=== PATIENT | female | born 1935 | race Caucasian/White ===

== ENCOUNTER 2016-07-05 08:28 | Observation (INO) | payer MEDICARE ==
[~2016-07-05] VITALS: Ht 167.6 cm; Wt 104.5 kg
[~2016-07-05 08:28] MED LIST: AMIO200T42 PO; APIX5TAB PO; ASPI-515 PO; ATOR10TA PO; CHOL200040 PO; DILT30TA27 PO; FAMO20TA7 PO; METO25TA35 PO; METO50TA82 PO
[2016-07-05] MEDS ORDERED: SODIUM CHLORIDE 0.9% 1,000 ML IV SCH (08:48)
[2016-07-05 08:56] VITALS: BP 134/71
[2016-07-05] MEDS ORDERED: CEFAZOLIN PMX 1GM/50ML 50 ML IVPB ONE (09:00)
[2016-07-05] MEDS ORDERED: IRBE75TA10 PO (09:21)
[2016-07-05] MEDS ORDERED: METO25TA35 PO (09:21)
[2016-07-05] MEDS ORDERED: MULT-6 PO (09:21)
[2016-07-05] MEDS ORDERED: VIT1TABL32 PO (09:21)
[2016-07-05] MEDS ORDERED: AMIO100T4 PO (09:21)
[2016-07-05] MEDS ORDERED: CALC250T PO (09:21)
[2016-07-05] MEDS ORDERED: FAMO20TA7 PO (09:21)
[2016-07-05] MEDS ORDERED: DILT30TA33 PO (09:21)
[2016-07-05] MEDS ORDERED: APIX5TAB PO (09:26)
[2016-07-05] MEDS ORDERED: CEFAZOLIN PMX 1GM/50ML 50 ML ONE (09:49)
[2016-07-05] MEDS ORDERED: CEFAZOLIN 1,000 MG ONE (09:49)
[2016-07-05] MEDS ORDERED: MIDAZOLAM 1 MG/ML, 5ML ONE (09:49)
[2016-07-05] MEDS ORDERED: FENTANYL PF 100 MCG/2ML ONE (09:49)
[2016-07-05] MEDS ORDERED: LIDOCAINE 2%, 20ML ONE (09:49)
[2016-07-05] MEDS ORDERED: ACETAMINOPHEN 325 MG TABLET PO PRN (11:00)
[2016-07-05] MEDS ORDERED: ZOLPIDEM 5MG TABLET PO PRN (11:00)
[2016-07-05 11:28] VITALS: BP 143/74
[2016-07-05 12:52] VITALS: BP 157/84
[2016-07-05] MEDS: CEFAZOLIN PMX 1GM/50ML 50 ML IVPB SCH (16:14)
[2016-07-05 19:09] VITALS: BP 126/78
[2016-07-05] MEDS: METOPROLOL TARTRATE 25 MG TABLET PO SCH (20:30)
[2016-07-05] MEDS: AMIODARONE 200 MG TABLET PO SCH (20:30)
[2016-07-05] MEDS: FAMOTIDINE 20 MG TABLET PO SCH (20:30)
[2016-07-05] MEDS: SODIUM CHLORIDE FLUSH 10ML SYR IVF SCH (20:55)
[2016-07-05] MEDS: APIXABAN 5 MG TABLET PO SCH (20:56)
[2016-07-05] MEDS ORDERED: ATORVASTATIN 10 MG TABLET PO SCH (21:00)
[2016-07-06] MEDS: CEFAZOLIN PMX 1GM/50ML 50 ML IVPB SCH (01:11)
[2016-07-06 02:00] VITALS: BP 148/84
[2016-07-06 07:39] VITALS: BP 138/84
[2016-07-06] MEDS: FAMOTIDINE 20 MG TABLET PO SCH (08:36)
[2016-07-06] MEDS: APIXABAN 5 MG TABLET PO SCH (08:36)
[2016-07-06] MEDS: METOPROLOL TARTRATE 25 MG TABLET PO SCH (08:36)
[2016-07-06] MEDS: SODIUM CHLORIDE FLUSH 10ML SYR IVF SCH (08:37)
[2016-07-06] MEDS: AMIODARONE 200 MG TABLET PO SCH (08:39)
[2016-07-06] MEDS ORDERED: CHOLECALCIFEROL 1,000 UNIT TABLET PO SCH (09:00)
[2016-07-06] MEDS ORDERED: CALCIUM CITRATE 950 MG TABLET PO SCH ×2 (09:00)
[2016-07-06] MEDS ORDERED: DILTIAZEM 30 MG TABLET PO SCH (09:00)
[2016-07-06] MEDS ORDERED: IRBESARTAN 150 MG TABLET PO SCH (09:00)
[2016-07-07] MEDS ORDERED: LUTEIN PO SCH (09:00)
[2016-07-07] MEDS ORDERED: [UNRECOGNIZED DRUG - OTHER] PO SCH (09:00)
[2016-07-07] MEDS ORDERED: MINERALS PO SCH (09:00)
[2016-07-07] MEDS ORDERED: MULTIVITAMIN 1 TABLET PO SCH (09:00)
[2016-07-07] MEDS ORDERED: VIT A C PO SCH (09:00)
== END 2016-07-06 11:48 | disposition home or self-care (01) ==
LOC: CACL 08:28 → ORIP 10:49 → 5SO 11:12 → DCLOUNGE 07-06 11:34
PROVIDERS: ADMIT Internal Medicine Cardiovascular Disease; ATTEND Internal Medicine Cardiovascular Disease
DX: I49.5 Sick sinus syndrome (principal); I48.0 Paroxysmal atrial fibrillation; I44.7 Left bundle-branch block, unspecified; R00.2 Palpitations; I10 Essential (primary) hypertension; E78.00 Pure hypercholesterolemia, unspecified; F70 Mild intellectual disabilities; E78.5 Hyperlipidemia, unspecified
CPT/HCPCS: 33208; 71010; 93005; 96365; 96375; C1779; C1785; C1892; G0378; J0690; J2250; J3010; J3490

== ENCOUNTER → 2017-05-21 | Outpatient (CLI) | payer MEDICARE ==
[~2017-05-21] MED LIST changes: +AMIO100T4 PO; +CALC250T PO; +DILT30TA33 PO; +IRBE75TA10 PO; +MULT-6 PO; +VIT1TABL32 PO
== END | disposition home or self-care (01) ==
LOC: CFH 09:25
PROVIDERS: ATTEND Internal Medicine Cardiovascular Disease
DX: R06.02 Shortness of breath (principal)
CPT/HCPCS: 71046

== ENCOUNTER → 2017-11-04 | Outpatient (CLI) | payer MEDICARE | END | disposition home or self-care (01) | LOC: CFH 13:15 | PROVIDERS: ATTEND Internal Medicine | DX: R91.8 Other nonspecific abnormal finding of lung field (principal); I25.10 Atherosclerotic heart disease of native coronary artery without angina pectoris; E04.1 Nontoxic single thyroid nodule; K80.20 Calculus of gallbladder without cholecystitis without obstruction; Z87.891 Personal history of nicotine dependence | CPT/HCPCS: 71250 ==

== ENCOUNTER → 2018-07-09 | Outpatient (CLI) | payer MEDICARE | END | disposition home or self-care (01) | LOC: CFH 11:42 | PROVIDERS: ATTEND Internal Medicine | DX: R91.1 Solitary pulmonary nodule (principal); E04.2 Nontoxic multinodular goiter; Z88.5 Allergy status to narcotic agent | CPT/HCPCS: 71250 ==

== ENCOUNTER 2018-09-23 09:06 | Outpatient (CLI) | payer MEDICARE | END 2018-09-23 23:59 | disposition home or self-care (01) | LOC: CFH 09:06 | PROVIDERS: ATTEND Internal Medicine | DX: R91.1 Solitary pulmonary nodule (principal); I70.0 Atherosclerosis of aorta; M85.88 Other specified disorders of bone density and structure, other site; M47.812 Spondylosis without myelopathy or radiculopathy, cervical region; M47.815 Spondylosis without myelopathy or radiculopathy, thoracolumbar region; K80.20 Calculus of gallbladder without cholecystitis without obstruction; E04.1 Nontoxic single thyroid nodule; I70.8 Atherosclerosis of other arteries | CPT/HCPCS: 71250 ==

== ENCOUNTER → 2019-12-24 | Outpatient (CLI) | payer MEDICARE ==
[~2019-12-24] MED LIST changes: -IRBE75TA10 PO; +IRBE75TA6 PO
== END | disposition home or self-care (01) ==
LOC: CFH 10:38
PROVIDERS: ATTEND Registered Nurse
DX: J84.10 Pulmonary fibrosis, unspecified (principal); I25.10 Atherosclerotic heart disease of native coronary artery without angina pectoris; R91.1 Solitary pulmonary nodule
CPT/HCPCS: 71250